=== PATIENT | male | born 1950 | race Caucasian/White ===

== ENCOUNTER 2017-04-11 13:55 | Observation (INO) | payer BC ==
[2017-04-07 12:10] LABS: CLARITY,URINE CLEAR (Clear); COLOR,URINE YELLOW (Yellow); GLUCOSE, URINE NEGATIVE (Neg); KETONES,URINE NEGATIVE (Neg); LEUKOCYTE ESTERASE ,URINE NEGATIVE (Neg); NITRITES, URINE NEGATIVE (Neg); OCCULT BLOOD,URINE NEGATIVE (Neg); PROTEIN,URINE NEGATIVE (Neg); UROBILINOGEN,URINE 0.2 E.U/dL (0.2-1.0)
[2017-04-07 12:15] LABS: ALBUMIN 3.7 G/DL (3.4-5.0); ANION GAP 14 (8-16); BLOOD UREA NITROGEN 14 MG/DL (7-18); CHLORIDE 107 MMOL/L (99-107); CREATININE 1.17 MG/DL (0.60-1.10); GLUCOSE 149 MG/DL (70-104); POTASSIUM 4.1 MMOL/L (3.5-5.1); SODIUM 140 MMOL/L (135-145); TOTAL CARBON DIOXIDE 19.4 MMOL/L (24-32); eGFR 63 ML/MIN
[2017-04-07 12:17] LABS: PARTIAL THROMBOPLASTIN TIME 25 SECONDS (22-32); PROTHROMBIN TIME 10.1 SECONDS (9.0-12.0); UA COLLECTION TYPE CLN CATCH MIDSTREAM
[2017-04-07 12:29] LABS: BASOPHILS % (AUTO) 0.4 % (0-1); EOSINOPHILS # (AUTO) 0.1 X10'3 (0-0.9); EOSINOPHILS % (AUTO) 1.8 % (0-6); HEMATOCRIT 44.3 % (42.0-52.0); HEMOGLOBIN 15.8 g/dl (14.0-17.9); LYMPHOCYTES # (AUTO) 1.8 X10'3 (1.1-4.8); LYMPHOCYTES % (AUTO) 32.1 % (21-51); MEAN CORPUSCULAR HEMOGLOBIN 31.7 PG (27.0-31.0); MEAN CORPUSCULAR HGB CONC 35.7 % (33.0-36.5); MEAN CORPUSCULAR VOLUME 88.8 FL (78-98); MEAN PLATELET VOLUME 9.7 FL (7.4-10.4); MONOCYTES # (AUTO) 0.6 X10'3 (0-0.9); MONOCYTES % (AUTO) 9.8 % (2-12); NEUTROPHILS # (AUTO) 3.2 X10'3 (1.8-7.7); NEUTROPHILS % (AUTO) 55.9 % (42-75); PLATELET COUNT 174 X10'3 (140-440); RED BLOOD COUNT 4.99 X10'6 (4.70-6.10); RED CELL DISTRIBUTION WIDTH 12.9 % (11.5-14.5); WHITE BLOOD COUNT 5.8 X10'3 (4.5-11.0)
[~2017-04-11] VITALS: Ht 182.9 cm; Wt 116.6 kg
[2017-04-11] VITALS (8 sets, daily range): BP systolic 122–146; BP diastolic 82–94
[~2017-04-11 13:55] MED LIST: ACET-2319 PO; ASPI-1265 PO; CART1TAB5 PO; CARV25TA PO; CYCL-394 PO; FURO40TA4 PO; LOSA50TA37 PO; MULT-785 PO; PANT40TA39 PO; POTA20TA19 PO; [UNRECOGNIZED DRUG - CODE] PO
[2017-04-11] MEDS: cefazolin 1gm/NS 100mL 100 ML IV SCH ×2 (14:37→18:02)
[2017-04-11] MEDS ORDERED: LORazepam 0.5 MG tablet PO PRN (14:40)
[2017-04-11] MEDS ORDERED: normal saline 1000ml 1,000 ML IV SCH (14:40)
[2017-04-11] MEDS ORDERED: diphenhydrAMINE 25mg capsule PO PRN (14:40)
[2017-04-11] MEDS ORDERED: FURO40TA4 PO (15:32)
[2017-04-11] MEDS ORDERED: ACET-2119 PO (15:32)
[2017-04-11] MEDS ORDERED: SPIR25TA3 PO (15:32)
[2017-04-11] MEDS ORDERED: proCHLORperazine 10 MG/2 ml inj ONE (16:25)
[2017-04-11] MEDS ORDERED: fentaNYL/PF 50MCG/1 ML 2ML syringe ONE (16:25)
[2017-04-11] MEDS ORDERED: midazolam 2 mg/2 ml injection ONE ×2 (16:26→16:45)
[2017-04-11] MEDS ORDERED: ceFAZolin 1000mg inj ONE (16:31)
[2017-04-11] MEDS ORDERED: cefazolin 1gm/NS 100mL 100 ML IV ONE ×2 (16:31→19:00)
[2017-04-11] MEDS ORDERED: LIDOcaine 1.5% w/epinephrine 1:200,000 5ml ampul ONE (16:31)
[2017-04-11] MEDS ORDERED: normal saline 1000ml 1,000 ML IV ONE (18:05)
[2017-04-11] MEDS ORDERED: proCHLORperazine 10 MG/2 ml inj IV PRN (18:10)
[2017-04-11] MEDS ORDERED: ondansetron/PF 4mg/2ml inj IV PRN (18:10)
[2017-04-11] MEDS ORDERED: acetaminophen 325mg tablet PO PRN (18:10)
[2017-04-11] MEDS ORDERED: OXAZEpam 15mg capsule PO PRN (18:10)
== END 2017-04-11 21:00 | disposition home or self-care (01) ==
LOC: SSTAY O 13:55 → PCU 3S 18:22 → SSTAY O 18:49
PROVIDERS: ADMIT Internal Medicine Interventional Cardiology; ATTEND Internal Medicine Interventional Cardiology
DX: I42.9 Cardiomyopathy, unspecified (principal); I11.0 Hypertensive heart disease with heart failure; I50.9 Heart failure, unspecified; T82.120A Displacement of cardiac electrode, initial encounter; Z95.810 Presence of automatic (implantable) cardiac defibrillator
CPT/HCPCS: 33215; 36415; 80048; 81003; 85025; 85610; 85730; 93005; 96374; A4565; G0378; J0690; J0780; J2250; J3010; J3490; J7030; Q0163; 99152; 99153; A4620

== ENCOUNTER 2020-10-21 11:25 | Day surgery (SDC) | payer MEDICARE, BC ==
[2020-10-16 14:46] LABS: BASOPHILS % (AUTO) 0.5 % (0-1); EOSINOPHILS # (AUTO) 0.1 X10'3 (0-0.9); EOSINOPHILS % (AUTO) 0.8 % (0-6); HEMATOCRIT 46.2 % (42.0-52.0); HEMOGLOBIN 15.7 g/dl (14.0-17.9); LYMPHOCYTES # (AUTO) 2.4 X10'3 (1.1-4.8); LYMPHOCYTES % (AUTO) 35.7 % (21-51); MEAN CORPUSCULAR HEMOGLOBIN 31.1 PG (27.0-31.0); MEAN CORPUSCULAR VOLUME 91.5 FL (78-98); MEAN PLATELET VOLUME 9.7 FL (7.4-10.4); MONOCYTES # (AUTO) 0.7 X10'3 (0-0.9); NEUTROPHILS # (AUTO) 3.6 X10'3 (1.8-7.7); PLATELET COUNT 202 X10'3 (140-440); RED BLOOD COUNT 5.05 X10'6 (4.70-6.10); WHITE BLOOD COUNT 6.8 X10'3 (4.5-11.0)
[2020-10-16 14:48] LABS: ALBUMIN 3.6 G/DL (3.4-5.0); ANION GAP 9 (8-16); BLOOD UREA NITROGEN 16 MG/DL (7-18); BUN/CREATININE RATIO 14.7 (5.4-32.0); CALCIUM 8.2 MG/DL (8.5-10.1); CHLORIDE 108 MMOL/L (99-107); CREATININE 1.09 MG/DL (0.60-1.10); GLUCOSE 135 MG/DL (70-104); POTASSIUM 4.2 MMOL/L (3.5-5.1); SODIUM 137 MMOL/L (135-145); eGFR 67 ML/MIN
[2020-10-16 14:50] LABS: PARTIAL THROMBOPLASTIN TIME 28 SECONDS (22-32)
[2020-10-21] VITALS (7 sets, daily range): BP systolic 98–140; BP diastolic 64–82
[~2020-10-21] VITALS: Ht 180.3 cm; Wt 120.2 kg
[~2020-10-21 11:25] MED LIST changes: +ACET-2119 PO; -ACET-2319 PO; -LOSA50TA37 PO; +LOSA50TA64 PO; +SPIR25TA5 PO
[2020-10-21] MEDS ORDERED: LORazepam 0.5 MG tablet PO PRN (11:45)
[2020-10-21] MEDS ORDERED: diphenhydrAMINE 25mg capsule PO PRN (11:45)
[2020-10-21] MEDS ORDERED: normal saline 1,000 ML IV SCH (11:45)
[2020-10-21] MEDS ORDERED: OMEP-50 PO (12:11)
[2020-10-21] MEDS ORDERED: LIDOcaine/PRILOcaine 5gm cream TP ONE (12:20)
[2020-10-21] MEDS ORDERED: verapamil 2.5 mg/ml inj IV ONE (14:02)
[2020-10-21] MEDS ORDERED: LIDOcaine 1% (10mg/ml)w/preservative injection 20ml MDV ONE (14:02)
[2020-10-21] MEDS ORDERED: fentaNYL/PF 50MCG/1 ML 2ML syringe ONE (14:02)
[2020-10-21] MEDS ORDERED: heparin 1,000unit/ml 10ml vial 10 ML ONE (14:02)
[2020-10-21] MEDS ORDERED: iohexol 350MG/ML 100ml bottle IV ONE (14:02)
[2020-10-21] MEDS ORDERED: midazolam 1 mg/ML 2ml injection ONE ×2 (14:02→14:25)
[2020-10-21] MEDS ORDERED: nitroGLYCERIN-Tridil 50MG/D5W 250 ML IV ONE (14:02)
[2020-10-21] MEDS ORDERED: proCHLORperazine 10 MG/2 ml inj IV PRN (15:20)
[2020-10-21] MEDS ORDERED: ondansetron/PF 4mg/2ml inj IV PRN (15:20)
[2020-10-21] MEDS ORDERED: OXAZEpam 15mg capsule PO PRN (15:20)
[2020-10-21] MEDS ORDERED: HYDROcodone/acetaminophen 10/325mg tab PO PRN (15:25)
[2020-10-21] MEDS ORDERED: HYDROcodone/acetaminophen 5mg/325mg tablet PO PRN (15:25)
== END 2020-10-21 17:25 | disposition home or self-care (01) ==
LOC: SSTAY O 11:25
PROVIDERS: ATTEND Internal Medicine Interventional Cardiology
DX: R06.02 Shortness of breath (principal); I25.10 Atherosclerotic heart disease of native coronary artery without angina pectoris; I11.0 Hypertensive heart disease with heart failure; I50.9 Heart failure, unspecified; I42.9 Cardiomyopathy, unspecified; Z95.810 Presence of automatic (implantable) cardiac defibrillator; Z79.899 Other long term (current) drug therapy; Z88.5 Allergy status to narcotic agent
CPT/HCPCS: 36415; 80048; 85025; 85610; 85730; 93005; 93458; 99152; C1769; C1894; J1644; J2001; J2250; J3010; J7030; Q0163; Q9967; 99153; A4620; A5120; J3490